=== PATIENT | female | born 1975 | race Caucasian/White ===

== ENCOUNTER 2020-01-16 15:07 | Inpatient (IN) ==
[2020-01-16] MEDS ORDERED: HYDROcodone/ACET. 7.5/325 LIQ 15 ML UDC PO PRN (20:02)
[2020-01-16] MEDS ORDERED: diPHENhydraMINE IV 50 MG/ML 1 ml VIAL (BENADRYL) SLOW PUSH PRN (20:02)
[2020-01-16] MEDS ORDERED: Ondansetron 4 mg VIAL 2 MG/ML 2 ml VIAL IV PRN (20:02)
[2020-01-16] MEDS ORDERED: HYDROmorphone 0.5 MG/0.5 ML SYRINGE IV SLOW PU PRN (20:02)
[2020-01-16] MEDS ORDERED: HYDROmorphone 1 MG/1 ML SYRINGE IV SLOW PU PRN (20:02)
[2020-01-16] MEDS: Lactated Ringers 1000 ml BAG 1,000 ML IV SCH (22:34)
[2020-01-16] MEDS: Famotidine IV 10 MG/ML 2 ml VIAL (20 mg) IV SLOW PU SCH (23:00)
[2020-01-16] MEDS: Heparin 5000 UNITS/ML 1 mL VIAL SUBCUT SCH (23:02)
[2020-01-17] MEDS: Lactated Ringers 1000 ml BAG 1,000 ML IV SCH ×2 (05:30→15:12)
[2020-01-17] MEDS: Heparin 5000 UNITS/ML 1 mL VIAL SUBCUT SCH ×3 (05:36→21:32)
[2020-01-17] MEDS: Famotidine IV 10 MG/ML 2 ml VIAL (20 mg) IV SLOW PU SCH ×2 (09:33→21:31)
[2020-01-17] MEDS: D5W 1/2 NS KCl 20 meq 1000 ml 1,000 ML IV SCH (21:41)
[2020-01-18] MEDS: Heparin 5000 UNITS/ML 1 mL VIAL SUBCUT SCH (05:59)
[2020-01-18] MEDS: D5W 1/2 NS KCl 20 meq 1000 ml 1,000 ML IV SCH (06:00)
[2020-01-18] MEDS: Famotidine IV 10 MG/ML 2 ml VIAL (20 mg) IV SLOW PU SCH (08:01)
[2020-01-18 11:40] VITALS: BP 122/75
== END 2020-01-18 12:15 | disposition home or self-care (01) | DRG 621 ==
LOC: PAT 15:07 → SSU 20:02
PROVIDERS: ADMIT Surgery; ATTEND Surgery